=== PATIENT | male | born 1990 | race Caucasian/White ===

== ENCOUNTER → 2024-08-05 | Outpatient (CLI) | payer OTHER ==
[2024-08-08 21:01] LABS: APTIMA MEDIA TYPE Urine; C. TRACHOMATIS BY TMA Negative (Negative); N. GONORRHOEAE BY TMA Negative (Negative); SPECIMEN SOURCE Urine
[2024-08-09 13:32] LABS: HSV 1 SUBTYPE BY PCR Not Detected; HSV 2 SUBTYPE BY PCR Not Detected; HSV SUBTYPE SOURCE PENIS
== END ==
LOC: LAB 14:58 → LAB SHORT 14:58
PROVIDERS: Emergency Medicine
DX: N50.89 Other specified disorders of the male genital organs (principal); N48.9 Disorder of penis, unspecified
CPT/HCPCS: 87491; 87529; 87591